=== PATIENT | male | born 1945 | race Two or more races ===

== ENCOUNTER 2017-12-06 10:19 | Outpatient (CLI) | payer OTHER | END 2017-12-06 10:24 | disposition home or self-care (01) | LOC: RAD 10:19 | DX: S62.92XA Unspecified fracture of left hand, initial encounter for closed fracture (principal) ==

== ENCOUNTER 2021-01-10 14:58 | Outpatient (CLI) | payer OTHER | END 2021-01-10 15:10 | disposition home or self-care (01) | LOC: RAD 14:58 | PROVIDERS: ATTEND Specialist | DX: S34.109A Unspecified injury to unspecified level of lumbar spinal cord, initial encounter (principal); S29.001A Unspecified injury of muscle and tendon of front wall of thorax, initial encounter; S39.92XS Unspecified injury of lower back, sequela ==

== ENCOUNTER 2022-05-07 14:49 | Outpatient (CLI) | payer OTHER | END 2022-05-07 14:50 | disposition home or self-care (01) | LOC: RAD 14:49 | PROVIDERS: ATTEND Internal Medicine Gastroenterology | DX: R10.9 Unspecified abdominal pain (principal) ==